=== PATIENT | female | born 1940 | race Hispanic/Latino ===

== ENCOUNTER 2017-11-22 10:02 | Outpatient (CLI) | payer MEDICARE, OTHER ==
--- NOTE | 2017-11-23 00:14 | XRay Report ---
FINAL REPORT EXAM: XR HAND BILAT 3+V HISTORY: BILATERAL HAND PAIN TECHNIQUE: Three views of each hand were obtained for a total of 6 views FINDINGS: For the left hand, there is severe arthritic changes of the distal interphalangeal joints of the 4th and 5th fingers. There is mild arthritic changes of the distal interphalangeal joints of the index and middle fingers. The metacarpophalangeal joints reveal mild arthritic changes of the 1st metacarpal phalangeal joint. There is severe arthritic changes of the greater multangular 1st metacarpal joint in the wrist. There is no evidence of fracture. For the right hand, there is severe arthritic changes of the distal interphalangeal joints of the index finger and 5th finger. The metacarpophalangeal joints appear intact. There is moderate severe arthritic changes of the greater multangular 1st metacarpal and immature-greater multangular joints in the wrist. There is no evidence of fracture. IMPRESSION: Bilateral polyarticular arthritic changes suggestive of osteoarthritis.
== END 2017-11-22 10:03 | disposition home or self-care (01) ==
LOC: SPVIMAG 10:02
PROVIDERS: ATTEND Orthopaedic Surgery Sports Medicine
DX: M79.642 Pain in left hand (principal); M79.641 Pain in right hand